=== PATIENT | male | born 1955 | race Caucasian/White ===

== ENCOUNTER → 2022-09-13 07:55 | Outpatient (BNVA) | payer MEDICARE, SELFPAY | PROVIDERS: PCP Internal Medicine; Visit Provider Nurse Practitioner Family | DX: G20 Parkinson's disease (principal); R29.898 Other symptoms and signs involving the musculoskeletal system; R13.10 Dysphagia, unspecified | CPT/HCPCS: 99212 ==

== ENCOUNTER → 2022-12-13 07:48 | Outpatient (BNVA) | payer MEDICARE, SELFPAY | PROVIDERS: PCP Internal Medicine; Visit Provider Nurse Practitioner Family | DX: G20 Parkinson's disease (principal); R29.898 Other symptoms and signs involving the musculoskeletal system | CPT/HCPCS: 99212 ==

== ENCOUNTER 2023-06-17 09:24 | Outpatient (AMB) | payer MEDICARE, SELFPAY ==
--- NOTE | 2023-06-17 09:30 | A.OFFVIS_ITS ---
Intake Vital Signs 06/17/23 09:34 Height 5 ft 10 in Weight 297 lb 4 oz BMI 42.6 BP 130/87 Blood Pressure Location Rt brachial Position Sitting Pulse 63 Pulse Source Pulse Oximeter Pulse Oximetry (%) 96 Oxygen Delivery Method Room Air Intake Visit Reasons: 3 mo follow up for Parkinsons-Confirmed Intake Note: Patient present today for Parkinsons 3 month follow up visit. Patient feels like his tremors are getting worse. He c/o twiching on both legs after standing for long periods of time, right leg seems to be worse. 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 Pt has had 3 recent dental extractions- is going to be fitted for partials. He mentions that his dtr who lives in [place] would like him to stop working and move in w/ her and her family ( and 5 children). He is not sure about this. He continues to work, which is his primary form of physical activity- walking, lifting things, etc. ADL's: Ind Vision: Intact, but sometimes may not be parked within the lines when parking Swallowing: He has not had any further swallowing issues. Drooling: A slight increase Orthostatic lightheadedness: None recently : urinary frequency- on a diuretic Constipation: No issues Freezing: None Stiffness: A bit more towards the end of the day. Can have more difficulty getting into out of his acr by the end of the dya- needs to almost pull the RLE up. Tremor: Increased in RUE, maybe some LUE tremor. Can feel internal/twitching in his legs. Falls: None Hallucinations: None Memory: He is a bit more worried about cognition. Mood: Noticing a bit more depression. Sleep: Has nocturia. States he wakes up refreshed. Not interested in doing a sleep study at this time. Exercise: Has not started going to [employer] yet. [facility] Medical History Adenoma Alcohol abuse, in remission Arthritis Depression HLD (hyperlipidemia) HTN (hypertension) IFG (impaired fasting glucose) Major depression Family History Father Prostate cancer Heart disease Mother Ovarian cancer Sister Colon cancer Social History Alcohol intake: former Patient Tobacco Use Status: Former Tobacco user e-Cigarette/Vaping Use: Former Use Review of Systems Const All systems reviewed & are unremarkable except as noted in HPI and below Physical Exam Vital Signs: Last Vital Signs Pulse 63 06/17/23 09:34 BP 130/87 06/17/23 09:34 Pulse Ox 96 06/17/23 09:34 Oxygen Delivery Method Room Air 06/17/23 09:34 BMI result Body Mass Index 42.6 Const General: cooperative and no acute distress Resp Effort & Inspection: normal respiratory effort and able to speak in complete sentences Neuro Other: General: A&O x's 3 Expression: Mild decreased blink Voice: No hypophonia Tremor: RUE rest and postural tremor. Tone: BUE rigidity, more so on right Dyskinesia: None FFM: BUE bradykinesia, more so on right Foot taps: RLE bradykinesia Gait: Slight stoop, decreased arm swing, RUE tremor, shorter steps w/ low floor clearance Psych: Pleasant affect Assessment & Plan Assessment & Plan (1) Parkinson's disease without dyskinesia: Code(s): G20.A1 - Parkinson's disease without dyskinesia, without mention of fluctuations (2) Rigidity: Code(s): R29.898 - Other symptoms and signs involving the musculoskeletal system (3) Tremor: Code(s): R25.1 - Tremor, unspecified Plan Start CD-LD 25-100mg 1 tab - may take w/ banana (cannot take w/ cracker d/t dental work) Encouraged to to increase physical, cognitive, and social activities. Future considerations: sleep study, DaTscan. f/u in 3 months or sooner prn. Medications: New carbidopa-levodopa 25-100 mg take w/ a banana 30 minutes before breakfast and dinner 1 tab PO BID 30 days 60 tabs 3RF Coding Level of Care Code Est Pt Level 4 (64333) Diagnoses Parkinson's disease without dyskinesia G20.A1 Rigidity R29.898 Tremor R25.1
[2023-06-17 09:34] VITALS: BP 130/87; PULSE 63; O2SAT 96; BMI 42.6
== END 2023-06-17 10:24 | disposition home or self-care (01) ==
PROVIDERS: Visit Provider Nurse Practitioner Family
DX: G20.A1 Parkinson's disease without dyskinesia, without mention of fluctuations (principal); R29.898 Other symptoms and signs involving the musculoskeletal system
CPT/HCPCS: 99214

== ENCOUNTER → 2023-06-17 09:24 | Outpatient (BNVA) | payer MEDICARE, SELFPAY | PROVIDERS: Visit Provider Nurse Practitioner Family | DX: G20.A1 Parkinson's disease without dyskinesia, without mention of fluctuations (principal); R29.898 Other symptoms and signs involving the musculoskeletal system | CPT/HCPCS: 99212 ==

== ENCOUNTER 2024-09-20 13:40 | Outpatient (AMB) | payer MEDICARE, SELFPAY ==
--- NOTE | 2024-09-20 13:41 | A.OFFVIS_ITS ---
Vital Signs 09/20/24 13:45 Height 5 ft 10 in Weight 280 lb BMI 40.2 BP 136/82 Blood Pressure Location Lt brachial Position Sitting Pulse 73 Pulse Source Pulse Oximeter Pulse Oximetry (%) 97 Oxygen Delivery Method Room Air Intake Visit Reasons: f/u for Parkinson's Intake Note: Patient presents for a 3 mo fu for Parkinson's disease. Booking Officer Required: No Accompanied by: Self / Same As Patient Allergies No Known Allergies Allergy (Verified 09/20/24 13:45) HPI Comments Details: 68-yr-old male presents for f/u visit for Parkinsons. Pt denies any significant interval medical history changes, consult pending R. Hip Surgery. He was recently laid off from work for about a month ago, after 22 years of work history. He lost 22 lbs in 3 months, and his diet has been better, BMI is 40. Pt's current PD medication regimen: Sinemt 1 tab BID Dose effectiveness, wearing off? wearing off early in morning when he wakes up at 6am, and middle of the day, more tremors. Pseudogout, he takes Colchicine PRN when he has sharp attacks in the wrist and ankles. Glaucoma on Latanoprost, yet eye pressure is still 25. ADL's: Ind but difficulty with putting on socks, showering difficulty and buttoning shirts still able to manage. Swallowing: no difficulty with swallowing. No h/o of PNA Cough: Occasional- mild Drooling: mild 2-3x week Orthostatic lightheadedness: None Constipation: yes, needs to eat more fiber eats raisin bran, prune juice. Freezing: None Stiffness: stiffness at night Tremor: R. hand and Falls: None. Hallucinations: None Memory: Memory is not good . 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 Sleep: Sleeps well w/ CPAP and Trazodone and Prazosin (uses for sleep and BP control).He still has vivid dreams Other: denies dizziness, BPPV or balance issues. Shuffling more and slower. [facility] Medical History IFG (impaired fasting glucose) Major depression HLD (hyperlipidemia) Alcohol abuse, in remission Adenoma Depression Arthritis HTN (hypertension) Family History Father Prostate cancer Heart disease Mother Ovarian cancer Sister Colon cancer Social History Alcohol intake: former Patient Tobacco Use Status: Former Tobacco user e-Cigarette/Vaping Use: Former Use Review of Systems Const All systems reviewed & are unremarkable except as noted in HPI and below Physical Exam Vital Signs: Last Vital Signs Pulse 73 09/20/24 13:45 BP 136/82 09/20/24 13:45 Pulse Ox 97 09/20/24 13:45 Oxygen Delivery Method Room Air 09/20/24 13:45 BMI result Body Mass Index 40.2 Const General: cooperative, comfortable and no acute distress Resp Effort & Inspection: normal respiratory effort and able to speak in complete sentences Neuro Other: General: A&O x's 3 Expression: decreased blink Voice: No hypophonia Tremor: RUE> LUE at rest and postural tremor. Tone: BUE rigidity, more so on right. Dyskinesia: None FFM: BUE bradykinesia, more so on right. Foot taps: RLE bradykinesia, heel taps slower. Gait: Stooped posture, decreased L. arm swing, RUE tremor, short steps w/ low floor clearance, and loss of balance when turns. Psych: Pleasant affect Deep tendon reflexes (DTR's): Right triceps reflex intensity grade: 2+, Left triceps reflex intensity grade: 2+, Rt Biceps (C5, C6): 2+, Left biceps reflex intensity grade: 2+, Right brachioradialis reflex intensity grade: 2+, Left brachioradialis reflex intensity grade: 2+, Right patellar reflex intensity grade: 2+ and Left patellar reflex intensity grade: 2+ Results Reviewed Results Reviewed: MRI 2021 No acute process, moderate generalized parenchymal colume loss and mild chronic white matter micro-angiopathy. Assessment & Plan Assessment & Plan (1) Parkinson's disease without dyskinesia: Code(s): G20.A1 - Parkinson's disease without dyskinesia, without mention of fluctuations Category: Medical Qualifiers: Fluctuating manifestations: with fluctuating manifestations Qualified Code(s): G20.A2 - Parkinson's disease without dyskinesia, with fluctuations (2) Rigidity: Code(s): R29.898 - Other symptoms and signs involving the musculoskeletal system Category: Medical (3) Tremor: Code(s): R25.1 - Tremor, unspecified Category: Medical (4) Balance disorder: Code(s): R26.89 - Other abnormalities of gait and mobility Category: Medical Plan - Increase CD/LD to TID 100 mg tablet 6am/ 3pm and 9pm daily. Do not take this with any dietary proteins, chicken, beef, pork etc.. May take with a cracker/ cookie or banana. May have proteins one hour after your Sinemet dose. -PT: Will send him to PT for Gait balance and strengthening. Encouraged patient to increase physical, cognitive, and social activities, joining the [facility] for Parkinsons exercise group. Future considerations: MAOI - Rasigiline, for mood and tremors. Future considerations: HST, he will discuss with his PCP in Sep and f/u with us. He has moderate volume loss on MRI 2021. F/u in 2 months, call if you have any questions or send a message on the portal. Orders: Orders PT Evaluation and Treatment Today R26.89 - Other abnormalities of gait and mobility Medications: Changed From cholecalciferol (vitamin D3) 125 mcg PO DAILY G20.A1 - Parkinson's disease without dyskinesia, without mention of fluctuations To cholecalciferol (vitamin D3) take 1 capsule daily by mouth. 125 mcg PO DAILY 30 caps 3RF cramps G20.A1 - Parkinson's disease without dyskinesia, without mention of fluctuations Scribe Plan - Not visible on output: Discussed benefits of dopaminergic therapies, such as reduced tremor and improved motor symptoms. Discussed potential adverse effects of dopaminergic therapies, including but not limited to nause/GI upset, orthostatic lightheadedness, dyskineisas, sleepiness, hallucinations. Pt is advised to establish care with a proofer due to slight increase risk of melanoma seen in patient's with Parkinson's disease. Declined HST to evaluate for Sleep apnea. Coding Level of Care Code Est Pt Level 4 (69843) Diagnoses Parkinson's disease without dyskinesia, with fluctuating manifestations G20.A2 Fluctuating manifestations: with fluctuating manifestations Rigidity R29.898 Tremor R25.1 Balance disorder R26.89
[2024-09-20 13:45] VITALS: BP 136/82; PULSE 73; O2SAT 97; BMI 40.2
--- OUTSIDE RECORDS SUMMARY | 2024-09-20 17:33 | XMS_ITS | Clinical Summary ---
Author Organization [facility] Facility Address [address] [place] [address] Care Team Providers Care Dock Superintendent Name Role Phone Demar Gates MD Primary Care Provider [phone] Social History Tobacco Use Types Packs/Day Years Used Date Smoking Tobacco: Never Assessed Sex and Gender Information Value Date Recorded Sex Assigned at Not on file Legal Sex Male 11:16 AM EDT Gender Identity Not on file Sexual Orientation Not on file Plan of Treatment Health Maintenance Due Date Last Done Comments Colorectal Cancer Screening: Annual FOBT 2005 Colorectal Cancer Screening: Colonoscopy 2005 Colorectal Cancer Screening: Sigmoidoscopy 2005 Pneumococcal Vaccine: 65+ Ye ars (1 of 1 - PCV) 2021 Influenza Vaccine (#1) 2024 Hepatitis B Vaccine Aged Out No longe r eligible based on patient's age to complete this topic Insurance [facility] Care Teams Dock Superintendent Relationship Specialty Start Date End Date Demar Gates MD [address] [place], [place] PCP - General Internal Medicine 03/08/22
--- OUTSIDE RECORDS SUMMARY | 2024-09-20 17:33 | XMS_ITS | Continuity of Care Document ---
Author Organization [facility] Address [address] [place] [address]- Care Team Providers Care Sanitation Laborer Name Role Phone Demar Gates MD Primary Care Physician Encounter [facility] [place] Date(s): 07/31/24 - 08/30/24 [facility] [address] [place] [address]- Encounter Type: Triage Allergies, Adverse Reactions, Alerts No Known Allergies Immunizations Given and Recorded Vaccine Date Status Refusal Reason influenza virus vaccine, inactivated 07/15/23 Joseluis rded influenza virus vaccine, inactivated 1 07/06/22 Gi hua influenza virus vaccine, inactivated 06/15/21 Joseluis rded influenza virus vaccine, inactivated 05/25/20 Joseluis rded influenza virus vaccine, inactivated 05/06/18 Give n influenza virus vaccine, inactivated 05/04/18 Joseluis rded influenza virus vaccine, inactivated 08/19/16 Give n influenza virus vaccine, inactivated 07/25/15 Give n SARS-CoV-2(COVID-19)mRNA-LNP vac([id number]) 07/15/23 Recorded pneumococcal 20-valent conjugate vaccine 2 07/06/22 Given SARS-CoV-2 (COVID-19) mRNA BNT-162b2 vac 06/28/21 Recorded SARS-CoV-2 (COVID-19) mRNA BNT-162b2 vac 12/23/20 Recorded SARS-CoV-2 (COVID-19) mRNA BNT-162b2 vac 12/01/20 Recorded zoster vaccine, inactivated 07/15/18 Recorded zoster vaccine, inactivated 05/06/18 Given zoster vaccine, inactivated 05/04/18 Recorded tetanus/diphtheria/pertussis, acel(Tdap) 07/25/15 Given tetanus-diphtheria toxoids (Td) 3 02/15/06 Given 1Result Comment: [facility]:[id number] 2Result Comment: [facility]:[id number] 3Admin Note: [facility] Medications atorvastatin 20 mg oral tablet 1 tablet, By Mouth, Daily, # 90 tablet, 1 Refills, Maintenance, 04/11/24 8:15:00 AM EDT, [facility], 180, cm, 04/11/24 8:09:00 EDT, Height Start Date: 04/11/24 Status: Ordered Quantity: 90.0 Unit: tablet Repeat number: 2 BuPROPion (Eqv-Wellbutrin SR) 150 mg/12 hours oral tablet, extended release 1 tablet, By Mouth, 2 times a day, OVERDUE FOR APPOINTMENT., # 180 tablet, 1 Refills, Maintenance, 04/11/24 8:15:00 AM EDT, [facility], 180, cm, 04/11/24 8:09:00 EDT, Height Start Date: 04/11/24 Status: Ordered Quantity: 180.0 Unit: tablet Repeat number: 2 carbidopa-levodopa 25 mg-100 mg oral tablet 1 tablet, By Mouth, 2 times a day, # 60 tablet, 0 Refills, Maintenance, 10/03/23 7:38:00 AM EST, Tablet, Partial fill upon patient request if the prescription is for a schedule II opioid drug. Start Date: 10/03/23 Stop Date: 11/02/23 Status: Ordered Quantity: 60.0 Unit: tablet Repeat number: 1 carvedilol 12.5 mg oral tablet See Instructions, TAKE ONE AND ONE-HALF TABLETS TWICE A DAY, # 270 tablet, Refills 1, Maintenance, 07/31/24 8:20:00 AM EST, Instructions Replace Required Details, Route to Pharmacy Electronically, [facility], 180, cm, 04/11/24 8:37:00 EDT, Height Start Date: 07/31/24 Status: Ordered Quantity: 270.0 Unit: tablet Repeat number: 1 colchicine 0.6 mg oral tablet 1, tablet, By Mouth, Daily, # 90 tablet, Refills 3, Maintenance, 03/28/24 8:02:00 AM EDT, Route to Pharmacy Electronically, [facility], 180, cm, 10/03/23 7:37:00 EST, Height Start Date: 03/28/24 Status: Ordered Quantity: 90.0 Unit: tablet Repeat number: 1 fluticasone 50 mcg/inh nasal spray 1 sprays = 50 mcg, Nares, Both, 2 times a day, # 1 each, 11 Refills, Maintenance, 10/03/23 8:13:00 AM EST, [id number], Partial fill upon patient request if the prescription is for a schedule II opioid drug., 1 sprays Nares, Both 2 times a day,x30 days, 180, cm, 10/03/23 7:37:00 EST,Height Start Date: 10/03/23 Stop Date: 09/27/24 Status: Ordered Quantity: 1.0 Unit: each Repeat number: 12 hydrochlorothiazide 25 mg oral tablet 1, tablet, By Mouth, 2 times a day, # 180 tablet, Refills 3, Maintenance, 03/05/24 9:49:00 AM EDT, Route to Pharmacy Electronically, [facility], 180, cm, 10/03/23 7:37:00 EST, Height Start Date: 03/05/24 Status: Ordered Quantity: 180.0 Unit: tablet Repeat number: 1 latanoprost 0.005% ophthalmic solution 1 drops, Eyes, Both, Daily at bedtime, # 3 mL, 0 Refills, Maintenance, 10/03/23 7:58:00 AM EST, [facility], Partial fill upon patient request if the prescription is for a schedule II opioid drug. Start Date: 10/03/23 Status: Ordered Quantity: 3.0 Unit: mL Repeat number: 1 losartan 100 mg oral tablet 1 tablet, By Mouth, Daily, # 90 tablet, 1 Refills, Maintenance, 08/30/23 3:21:00 PM EST, [facility], please extend available refills for a full year these active Rx's, 180, cm, 08/05/22 12:06:00 EST, Height Start Date: 08/30/23 Status: Ordered Quantity: 90.0 Unit: tablet Repeat number: 2 MetFORMIN (Eqv-Glucophage XR) 500 mg oral tablet, extended release 2 tablet, By Mouth, Daily, OVERDUE FOR APPOINTMENT., # 180 tablet, 1 Refills, Maintenance, 04/11/24 8:15:00 AM EDT, [facility], 180, cm, 04/11/24 8:09:00 EDT, Height Start Date: 04/11/24 Status: Ordered Quantity: 180.0 Unit: tablet Repeat number: 2 Multivitamin Daily, 0 Refills, Maintenance, 08/12/20 3:27:00 PM EST, Partial fill upon patient request if the prescription is for a schedule II opioid drug. Start Date: 08/12/20 Status: Ordered Repeat number: 1 Problem List Condition Confirmation Course Effective Dates Status H ealth Status Informant Adenoma 1 Confirmed Active Major depression, chronic Confirmed Active Glaucoma Confirmed Active Hyperlipidemia Confirmed Active Hypertension Confirmed Active IFG (impaired fasting glucose) Confirmed Active Parkinson disease Confirmed Active 1colonoscopy fall Social History Social History Type Response Smoking Status Former smoker; Other : 12 years ago; entered on: 08/14/15 Sex Sex Representation Male (finding) Patient Care team information Care Team Personnel Name: Demar Gates MD Position: [facility] Physician - Primary Care Member Role: PCP Address: [address] [place] [address] Telecom: Care Team Related Persons Name: PERRY ANDERSON Name: FABI SANCHEZ Insurance Providers Guarantor name: SUMMER SANCHEZ Health Plan Information #: 1 Payer: MEDICARE PART B OUTPT Member Number: NA Policy Number: NA Group Number: NA Health Plan Information #: 2 Payer: [facility] OPT Member Number: NA Policy Number: NA Group Number: NA
== END 2024-09-20 14:50 | disposition home or self-care (01) ==
PROVIDERS: PCP Internal Medicine; Visit Provider Physician Assistant Medical
DX: G20.A2 Parkinson's disease without dyskinesia, with fluctuations (principal); R29.898 Other symptoms and signs involving the musculoskeletal system; R26.89 Other abnormalities of gait and mobility
CPT/HCPCS: 99214

== ENCOUNTER → 2024-09-20 13:40 | Outpatient (BNVA) | payer MEDICARE, SELFPAY | PROVIDERS: PCP Internal Medicine; Visit Provider Physician Assistant Medical | DX: G20.A2 Parkinson's disease without dyskinesia, with fluctuations (principal); R29.898 Other symptoms and signs involving the musculoskeletal system; R26.89 Other abnormalities of gait and mobility | CPT/HCPCS: 99212 ==

== ENCOUNTER 2024-11-16 09:47 | Outpatient (AMB) | payer MEDICARE, SELFPAY ==
--- NOTE | 2024-11-16 09:53 | A.OFFVIS_ITS ---
Vital Signs 11/16/24 09:54 Height 5 ft 10 in Weight 279 lb BMI 40.0 BP 110/80 Blood Pressure Location Lt brachial Position Sitting Pulse 86 Pulse Source Pulse Oximeter Pulse Oximetry (%) 97 Oxygen Delivery Method Room Air Intake Visit Reasons: Follow up 3mo Intake Note: Patient presents for 3 month follow up for Parkinson's. PT notes in chart. Stuffing Machine Operator Required: No Accompanied by: Self / Same As Patient Allergies No Known Allergies Allergy (Verified 11/16/24 09:56) HPI Comments Details: 68-yr-old r. handed male presents for f/u of Parkinsons Disorder. Pt denies any significant interval medical history changes, surgery consult completed for R. Hip Arthoplasty. He is in good spirits today despite loosing his job 4 months ago. He has lost 22 lbs in 3 months and his diet is improving, however continues to h ave difficulties swallowing hard foods. He c/o of stiffness and some wearing off symptoms during the AM and PM inspite of Sinemet TID. He is has ongoing pseudogout attacks, on colchicine PRN, and Latanoprost for Glaucoma. PT for Hip strengthening, balance difficulties and gait was initiated with some improvement in ambulation, still uses a cane and finds turning over in bed difficult at night. Mood is stable recently increased Bupropion to 300mg PO plus 100mg PO in the AM, and started counseling 1x week, still hesitant to go for sleep study. Memory, he denies cognitive deficits, but his STM is poor. Denies Apathy, blunting and decreased blink, denies hypophonia or voice tremors. R. Hand Tremor is worse, R. sided facial tremors mild. Pill Rolling Tremor None. Falls, none. Denies freezing of gait walks with a cane, slower with shuffling and ongoing balance difficulties. Bradykinesia and Cogwheel rigidity R. UE fine motor activities with stiffness at night. LE Foot taps normal. Independent with all ADLs, but difficult to put on socks and shower. He is able to button his shirt, and eat with a knife and spoon. Cough: Occasional mild coughing wiht drooling on the l. side when sleeping, his pillow is wet in the morning. Denies Orthostatic lightheadedness and dizziness. Constipation: yes, has a BM 1-2 days, started fiber gummies and prune juice, pear juice, laxatives as needed. Hallucinations: None. Denies Nocturia: 2 x a night and falls asleep right away. Sleep: Sleeps well, uncertain if he wants to reassess for sleep apnea, will consider HST. He still has vivid dreams, and screaming at night, but doesn't recall the dreams. Other: Eustacean pressure, unable to clear the pressure in L. ear, ears are clear per PCP. Denies use of alcohol, smoking nicotine, cigars, or MJ edibles. [facility] Medical History IFG (impaired fasting glucose) Major depression HLD (hyperlipidemia) Alcohol abuse, in remission Adenoma Depression Arthritis HTN (hypertension) Family History Father Prostate cancer Heart disease Mother Ovarian cancer Sister Colon cancer Social History Alcohol intake: former Patient Tobacco Use Status: Former Tobacco user e-Cigarette/Vaping Use: Former Use Review of Systems Const All systems reviewed & are unremarkable except as noted in HPI and below Physical Exam Vital Signs: Last Vital Signs Pulse 86 11/16/24 09:54 BP 110/80 11/16/24 09:54 Pulse Ox 97 11/16/24 09:54 Oxygen Delivery Method Room Air 11/16/24 09:54 BMI result Body Mass Index 40.0 Const General: cooperative, comfortable and no acute distress Resp Effort & Inspection: normal respiratory effort and able to speak in complete sentences Neuro Other: General: A&O x's 3 Expression: decreased blink Voice: No hypophonia Tremor: RUE> LUE at rest and postural tremor. Tone: BUE rigidity, more so on right. Dyskinesia: None FFM: BUE bradykinesia, more so on right. Foot taps: RLE bradykinesia, heel taps slower. Gait: Stooped posture, decreased L. arm swing, RUE tremor, short steps w/ low floor clearance, and loss of balance when turns. Psych: Pleasant affect Deep tendon reflexes (DTR's): Right triceps reflex intensity grade: 2+, Left triceps reflex intensity grade: 2+, Rt Biceps (C5, C6): 2+, Left biceps reflex intensity grade: 2+, Right brachioradialis reflex intensity grade: 2+, Left brachioradialis reflex intensity grade: 2+, Right patellar reflex intensity grade: 2+ and Left patellar reflex intensity grade: 2+ Psych Appearance: grossly normal Thought process: Normal thought process present Thought content: Normal thought content present Results Reviewed Results Reviewed: Requested Lab and imaging of Hip from [facility] and PCP. Assessment & Plan Assessment & Plan (1) Fatigue due to sleep pattern disturbance: Code(s): R53.83 - Other fatigue; G47.9 - Sleep disorder, unspecified Category: Medical (2) Balance disorder: Code(s): R26.89 - Other abnormalities of gait and mobility Category: Medical (3) Difficulty swallowing: Code(s): R13.10 - Dysphagia, unspecified Category: Medical Qualifiers: Dysphagia type: unspecified Qualified Code(s): R13.10 - Dysphagia, unspecified (4) Rigidity: Code(s): R29.898 - Other symptoms and signs involving the musculoskeletal system Category: Medical Plan Continue to engage in PT, look into [employer] (movement disorder classes). Weight loss Plan BMI is 40, continue to be mindful of dietary needs. Monitor A1c and Blood pressure. HST will evaluate for Sleep apnea. Labs will review and assess for RLS Ferritin, B12/ Folate/ MMA Homocysteine, CRP for Continue vitamin D 600mg OTC Continue Magnesium 400mg. Orders: Orders Vitamin B12 and Folate Today G47.9 - Sleep disorder, unspecified, R53.83 - Other fatigue Ferritin Today G47.9 - Sleep disorder, unspecified, R53.83 - Other fatigue Methylmalonic Acid Today G47.9 - Sleep disorder, unspecified, R53.83 - Other fatigue TSH reflex Free T4 Today G47.9 - Sleep disorder, unspecified, R53.83 - Other fatigue CRP High Sensitivity Today G47.9 - Sleep disorder, unspecified, R53.83 - Other fatigue IRON PROFILE Today G47.9 - Sleep disorder, unspecified, R53.83 - Other fatigue Homocysteine Today G47.9 - Sleep disorder, unspecified, R53.83 - Other fatigue Patient Instructions: Sleep Hygiene provided: set a scheduled bedtime and wake time to help regulate the circadian rhythm and balance the release of pituitary hormones. Sleep in a dark room, temperatures below 68 degrees, and no devices n bed. Limit caffeinated products 6 hours prior to bed, and limit fluids 2-4 hours prior to bed. Gentle night yoga, diffusing essential oils, and playing soft music can be relaxing. Monitor A1c/ Monitor BP. F/U with the dentist for chewing issues related F/U with PT for Hip strengthening and balance training, use your cane daily. The number one modifiable rf for Stroke and CV events is HTN. Coding Level of Care Code Est Pt Level 4 (60310) Complex EM visit Add On G2211 Diagnoses Fatigue due to sleep pattern disturbance R53.83; G47.9 Balance disorder R26.89 Dysphagia, unspecified type R13.10 Dysphagia type: unspecified Rigidity R29.898 Time Spent (min) 45 Comment Worsening Tremor
[2024-11-16 09:54] VITALS: BP 110/80; PULSE 86; O2SAT 97; BMI 40.0
== END 2024-11-16 11:13 | disposition home or self-care (01) ==
LOC: HO.HSMS 09:48
PROVIDERS: PCP Internal Medicine; Visit Provider Physician Assistant Medical
DX: R53.83 Other fatigue (principal); G47.9 Sleep disorder, unspecified; R26.89 Other abnormalities of gait and mobility; R13.10 Dysphagia, unspecified; R29.898 Other symptoms and signs involving the musculoskeletal system
CPT/HCPCS: 99214; G2211

== ENCOUNTER → 2024-11-16 09:47 | Outpatient (BNVA) | payer MEDICARE, SELFPAY | PROVIDERS: PCP Internal Medicine; Visit Provider Physician Assistant Medical | DX: R53.83 Other fatigue (principal); R26.89 Other abnormalities of gait and mobility; R13.10 Dysphagia, unspecified; R29.898 Other symptoms and signs involving the musculoskeletal system; G47.9 Sleep disorder, unspecified | CPT/HCPCS: 99212 ==

== ENCOUNTER 2025-02-15 07:57 | Outpatient (AMB) | payer MEDICARE, SELFPAY ==
--- OUTSIDE RECORDS SUMMARY | 2025-02-15 08:00 | XMS_ITS | Clinical Summary ---
Author Organization [facility] Facility Address [address] [place] [address] Care Team Providers Care Cigarette And Filter Chief Inspector Name Role Phone Demar Gates MD Primary Care Provider [phone] Social History Tobacco Use Types Packs/Day Years [...] Colorectal Cancer Screening: Sigmoidoscopy 2005 Pneumococcal Vaccine: 50+ Ye ars (1 of - PCV) 2006 Influenza Vaccine (Season Ended) 2025 Hepatitis B Vaccine Aged Out No longe r eligible based on patient's age to complete this topic Insurance [facility] Care Teams Cigarette And Filter Chief Inspector Relationship Specialty Start Date End Date Demar Gates MD [address] [place], [place] PCP - General Internal Medicine 03/08/22
[2025-02-15 08:03] VITALS: BP 110/88; BMI 39.9
--- NOTE | 2025-02-15 08:03 | MHC.OFFVIS ---
Vital Signs 02/15/25 08:03 Height 5 ft 10 in Weight 278 lb BMI 39.9 BP 110/88 Blood Pressure Location Rt brachial Position Sitting Intake Visit Reasons: 3 mnts f/u appt Intake Note: Patient presents for 3 month follow up Allergies No Known Allergies Allergy (Verified 02/15/25 08:06) HPI Comments Details: 69-yr-old r. handed male presents for f/u of Parkinsons Disorder. He is moving to [place] to be closer to his daughter. Pt denies any significant interval medical history changes. He had difficulties swallowing solids must chew mindfully and slowly. Tremors: Tremors and stiffness is worse in the AM, inspite of Sinemnet TID. RUE Hand Tremor is worse, R. sided facial tremors mild. Pill Rolling Tremor None. Bradykinesia and Cogwheel rigidity is worse at night. Denies freezing of gait, slower with shuffling and mild balance difficulties, has to change positions slowly. Mood: Taking Wellbutrin at night made him more active thus could not sleep, he gets up at 3 times a night, will also change his routine of Wellbutrin to the mornings. Mild to moderate depression is his baseline, anxiety has increased due to the pending move. He is still on Buproprion 150mg po in the AM and 150mg po in the PM, discussed today to take 150 + 75mg in the moring and 75mg in the evening. Denies caffeine. Bilateral IOP is normal, still 25/25. Latonoprast 1 drop each eye at night. PT for Hip strengthening, balance has improved, no falls, and using a cane now, he continues to have difficulty turning over in bed. Memory: STM is poor however he ramirez crooked in the parking lots, and is never in the lines or [address] the parking spots. He reports lack of spatial awareness. Says his propioception in space is poor. Says he is apathetic, and he lacks motivation, however denies blunting and decreased blink, denies hypophonia or voice tremors. Independent with all ADLs, but difficult to put on socks and shower. Pulls over the head not able to button his shirt. He can cut up his food eat with a fork and knife. Constipation denies has a BM 1-2 days, started fiber gummies and prune juice, pear juice, laxatives as needed. Hallucinations: Denies. Incontinence : Denies. Sleep: Sleeps well, uncertain if he wants to reassess for sleep apnea. [facility] Medical History IFG (impaired fasting glucose) Major depression HLD (hyperlipidemia) Alcohol abuse, in remission Adenoma Depression Arthritis HTN (hypertension) Family History Father Prostate cancer Heart disease Mother Ovarian cancer Sister Colon cancer Social History Alcohol intake: former Patient Tobacco Use Status: Former Tobacco user e-Cigarette/Vaping Use: Former Use Review of Systems Const All systems reviewed & are unremarkable except as noted in HPI and below Physical Exam Vital Signs: Last Vital Signs BP 110/88 02/15/25 08:03 BMI result Body Mass Index 39.9 Const General: cooperative, comfortable and no acute distress Resp Effort & Inspection: normal respiratory effort and able to speak in complete sentences Neuro Other: General: A&O x's 3 Expression: decreased blink Voice: No hypophonia Tremor: RUE> LUE at rest and postural tremor. Tone: BUE rigidity, more so on right. Dyskinesia: None FFM: BUE bradykinesia, more so on right. Foot taps: RLE bradykinesia, heel taps slower. Gait: Stooped posture, decreased L. arm swing, RUE tremor, short steps w/ low floor clearance, and loss of balance when turns. Psych: Pleasant affect Psych Appearance: grossly normal Thought process: Normal thought process present Thought content: Normal thought content present Assessment & Plan Assessment & Plan (1) Fatigue due to sleep pattern disturbance: Code(s): R53.83 - Other fatigue; G47.9 - Sleep disorder, unspecified Category: Medical (2) Balance disorder: Code(s): R26.89 - Other abnormalities of gait and mobility Category: Medical (3) Difficulty swallowing: Code(s): R13.10 - Dysphagia, unspecified Category: Medical Qualifiers: Dysphagia type: unspecified Qualified Code(s): R13.10 - Dysphagia, unspecified (4) Rigidity: Code(s): R29.898 - Other symptoms and signs involving the musculoskeletal system Category: Medical Plan Continue to engage in PT, look into [employer] (movement disorder classes). Weight loss Plan BMI is 40, continue to be mindful of dietary needs. Monitor A1c and Blood pressure. HST will evaluate for Sleep apnea, if patinet amenable. Labs will review and assess for RLS Ferritin, B12/ Folate/ MMA Homocysteine, CRP for gout. Continue vitamin D 600mg OTC Continue Magnesium citrate 400mg and B6 200mg po daily. F/U with Neurologist in [place], please take or request all records, labs and Imagining. Patient Instructions: Sleep Hygiene provided: set a scheduled bedtime and wake time to help regulate the circadian rhythm and balance the release of pituitary hormones. Sleep in a dark room, temperatures below 68 degrees, and no devices n bed. Limit caffeinated products 6 hours prior to bed, and limit fluids 2-4 hours prior to bed. Gentle night yoga, diffusing essential oils, and playing soft music can be relaxing. HST/PSG to evaluate for SARAHY. Coding Level of Care Code Est Pt Level 4 (57630) Diagnoses Fatigue due to sleep pattern disturbance R53.83; G47.9 Balance disorder R26.89 Dysphagia, unspecified type R13.10 Dysphagia type: unspecified Rigidity R29.898 Time Spent (min) 30 Comment Moving to [place]
== END 2025-02-15 09:09 | disposition home or self-care (01) ==
LOC: HO.HSMS 07:58
PROVIDERS: PCP Internal Medicine; Visit Provider Physician Assistant Medical
DX: R53.83 Other fatigue (principal); G47.9 Sleep disorder, unspecified; R26.89 Other abnormalities of gait and mobility; R13.10 Dysphagia, unspecified; R29.898 Other symptoms and signs involving the musculoskeletal system
CPT/HCPCS: 99214

== ENCOUNTER → 2025-02-15 07:57 | Outpatient (BNVA) | payer MEDICARE, SELFPAY | PROVIDERS: PCP Internal Medicine; Visit Provider Physician Assistant Medical | DX: R53.83 Other fatigue (principal); G47.9 Sleep disorder, unspecified; R26.89 Other abnormalities of gait and mobility; R13.10 Dysphagia, unspecified; R29.898 Other symptoms and signs involving the musculoskeletal system | CPT/HCPCS: 99212 ==